=== PATIENT | male | born 1995 | race Caucasian/White ===

== ENCOUNTER 2016-08-03 11:36 | Emergency (ER) | payer OTHER ==
[2016-08-03 12:54] LABS: HEMOGLOBIN 15.3 gm/dl (14.0-17.5); RED BLOOD COUNT 5.25 M/UL (4.20-5.50); WHITE BLOOD COUNT 6.2 K/UL (4.5-11.0)
[2016-08-03 13:28] LABS: BUN/CREATININE RATIO 17 (0-10)
== END 2016-08-03 15:05 | disposition home or self-care (01) ==
LOC: ER1 11:36
PROVIDERS: Family Medicine
DX: R07.9 Chest pain, unspecified (principal)
CPT/HCPCS: 36415; 71020; 80053; 82550; 82553; 83874; 84484; 85025; 86403; 99285